=== PATIENT | male | born 1970 | race Caucasian/White ===

== ENCOUNTER 2017-01-23 17:40 | Emergency (ER) | payer SELFPAY ==
[~2017-01-23 17:40] MED LIST: Sodium Chloride 0.9% 100 ML BAG ONE
[2017-01-23 18:36] LABS: Red Blood Cell (RBC) Count 4.71 mill/uL (4.70-6.10)
[2017-01-23 18:37] LABS: #Basophils 0.1 thou/uL (0.0-0.2); #Eosinphils 0.2 thou/uL (0.0-0.7); #Lymphocytes 2.2 thou/uL (1.20-3.40); #Monocytes 0.7 thou/uL (0.11-0.59); #Neutrophils 10.7 thou/uL (1.40-6.50); %Basophils 0.6 % (0.0-1.0); %Eosinophils 1.8 % (0.0-10.0); %Lymphocytes 15.9 % (21.0-51.0); %Monocytes 4.9 % (0.0-10.0); %Neutrophils 76.8 % (42.0-75.0); Mean Corpuscular HGB CONC 36.8 g/dL (32.0-36.0); Mean Corpuscular Hemoglobin 33.8 pg (27.0-31.0); Mean Corpuscular Volume 92.1 fL (80.0-94.0); Mean Platelet Volume 7.4 fL (7.4-10.4); Platelet Count 167 thou/uL (130-400); RBC Distribution Width 11.1 % (11.5-14.5)
[2017-01-23 18:42] LABS: PTT 26.5 SEC (22.9-36.1); Prothrombin Time 13.1 SEC (12.0-14.7)
[2017-01-23 18:48] LABS: ALT (SGPT) 85 U/L (8-55); AST (SGOT) 50 U/L (5-34); Albumin 4.1 g/dL (3.5-5.0); Alkaline Phosphatase 49 U/L (40-150); Anion Gap 15 mmol/L (10-20); BUN (Urea Nitrogen) 17 mg/dL (8.9-20.6); Bilirubin, Total 1.5 mg/dL (0.2-1.2); Calc. Creatinine Clearance 0 mL/min (70-130); Calcium 8.9 mg/dL (7.8-10.44); Carbon Dioxide 23 mmol/L (22-29); Chloride 106 mmol/L (98-107); Estimated GFR-MDRD 77; Globulin 2.4 g/dL (2.4-3.5); Glucose 121 mg/dL (70-105); Potassium 3.9 mmol/L (3.5-5.1); Protein, Total 6.5 g/dL (6.0-8.3); Sodium 140 mmol/L (136-145)
[2017-01-23 18:51] LABS: D-Dimer Test Less than 0.27 *mcg/mL (0.27-0.43)
--- NOTE | 2017-01-23 19:11 | RAD ---
LEFT TIBIA AND FIBULA TWO VIEWS: HISTORY: A 46-year-old male with left tibia and fibula pain. FINDINGS: There is some diffuse swelling and subcutaneous fat stranding of the lower leg. No fracture, disloc ation, or other significant acute osseous abnormality. IMPRESSION: Diffuse soft tissue swelling without fracture or dislocation. POS: [facility]
[2017-01-23] MEDS ORDERED: Piperacillin/Tazobactam 3.375 GM VIAL ONE (19:58)
--- NOTE | 2017-01-23 20:54 | RAD ---
UPRIGHT PORTABLE CHEST ONE VIEW HISTORY: A 46-year-old male with fever. FINDINGS: Heart size is within normal limits. Lungs are clear. No pneumonia, edema, or pleural effusion. IMPRESSION: No active intrathoracic disease. POS: [facility]
== END 2017-01-23 22:10 | disposition short-term general hospital (02) ==
LOC: MADERS 17:40
DX: L03.116 Cellulitis of left lower limb (principal); J45.909 Unspecified asthma, uncomplicated; F17.210 Nicotine dependence, cigarettes, uncomplicated; Z79.51 Long term (current) use of inhaled steroids
CPT/HCPCS: 71010; 80053; 83605; 85025; 85379; 85610; 85730; 87040; 94760; 96365; J2543; J7050

== ENCOUNTER 2020-09-26 06:53 | Emergency (ER) | payer SELFPAY ==
[2020-09-26] MEDS ORDERED: Acetaminophen 500 MG TAB ONE (07:44)
[2020-09-26] MEDS ORDERED: Ibuprofen 800 MG TAB ONE (07:44)
--- NOTE | 2020-09-26 08:30 | RAD ---
Exam:3 views right hand HISTORY: Fourth and fifth metacarpal swelling and tenderness. COMPARISON: None FINDINGS: Preserved joint spaces. No fracture, cortical irregularity or periosteal reaction. No radio paque foreign body. No significant soft tissue swelling. IMPRESSION: No radiographic abnormality.
== END 2020-09-26 08:47 | disposition home or self-care (01) ==
LOC: MADERS 06:53
DX: G56.21 Lesion of ulnar nerve, right upper limb (principal); J45.909 Unspecified asthma, uncomplicated; F17.210 Nicotine dependence, cigarettes, uncomplicated; Z79.899 Other long term (current) drug therapy
CPT/HCPCS: 29125

== ENCOUNTER 2021-04-29 11:04 | Emergency (ER) | payer MEDICAID, SELFPAY ==
[2021-04-29] MEDS ORDERED: Morphine 2 MG/ML VIAL ONE (12:22)
[2021-04-29] MEDS ORDERED: Morphine 4 MG/ML VIAL ONE (12:22)
[2021-04-29] MEDS ORDERED: Acetaminophen 500 MG TAB ONE (12:22)
[2021-04-29] MEDS ORDERED: Ketorolac Tromethamine 30 MG/ML VIAL ONE (12:22)
== END 2021-04-29 13:33 | disposition home or self-care (01) ==
LOC: MADERS 11:04
DX: M25.551 Pain in right hip (principal); Q65.89 Other specified congenital deformities of hip; M79.81 Nontraumatic hematoma of soft tissue; J45.909 Unspecified asthma, uncomplicated; F17.210 Nicotine dependence, cigarettes, uncomplicated
CPT/HCPCS: 96372; J1885; J2270